=== PATIENT | female | born 1985 | race Caucasian/White ===

== ENCOUNTER 2016-08-25 14:31 | Emergency (ER) | payer OTHER, MEDICAID ==
[~2016-08-25] VITALS: Ht 175.3 cm; Wt 60.8 kg
[~2016-08-25 14:31] MED LIST: ABILIFY; PRENCAP15; ZOLOFT
[2016-08-25 15:58] LABS: Hematocrit 41.8 % (36.0-46.0); Hemoglobin 13.8 g/dL (12.2-16.2); Mean Corpuscular Hemoglobin 29.2 pg (28.0-32.0); Mean Corpuscular Hgb Conc. 33.1 g/dL (32.0-36.0); Mean Corpuscular Volume 88.2 fL (80.0-100.0); Mean Platelet Volume 8.4 fL (7.4-10.4); Platelet Count (auto) 230 10^3/uL (140-450); Red Cell Distribution Width 15.1 % (11.6-16.0); SUSPECT VIEW TRANSMISSION; White Blood Cell 17.7 10^3/uL (4.4-10.8)
[2016-08-25 16:02] LABS: Metamyelocytes % 0; Myelocytes % 0; Promyelocytes % 0; Reactive Lymphocytes 0
[2016-08-25 16:19] LABS: BUN/Creatinine Ratio 16.7; Calcium 8.8 mg/dL (8.5-10.1); Potassium 3.8 mmol/L (3.5-5.1)
[2016-08-25] MEDS ORDERED: SODIUM CHLORIDE 0.9% 1,000 ML IVB ONE (17:32)
[2016-08-25 17:42] VITALS: BP 112/62
[2016-08-25] MEDS ORDERED: ONDANSETRON HCL 4 MG/2 ML VIAL IV ONE (17:45)
[2016-08-25] MEDS ORDERED: HYDROmorphone HCL 2 MG/ML VL IV ONE (17:45)
[2016-08-25 17:54] LABS: Magnesium 2.3 mg/dL (1.6-2.6)
[2016-08-25 17:55] LABS: Urine Bilirubin Negative (Negative); Urine Blood Negative /uL (Negative); Urine Color Yellow (Yellow); Urine Glucose Normal (Normal); Urine Ketone Negative (Negative); Urine Mucus FEW (None Seen); Urine Nitrite Negative (Negative); Urine RBC 1 /hpf (0 - 4); Urine Squamous Epithelial Cell FEW /hpf (<5); Urine pH 6.5 (5.0-8.0)
[2016-08-25 18:41] LABS: Platelet Estimate Adequate
[2016-08-25 18:42] LABS: Anisocytosis Slight; Ovalocytes FEW
== END 2016-08-25 19:05 | disposition home or self-care (01) ==
LOC: ER 14:31
DX: N39.0 Urinary tract infection, site not specified (principal); F17.210 Nicotine dependence, cigarettes, uncomplicated; F15.10 Other stimulant abuse, uncomplicated
CPT/HCPCS: 36415; 74176; 80048; 80307; 81001; 83690; 83735; 84702; 85007; 85027; 94761; 96361; 96374; 96375; 99285; J1170; J2405; J7030

== ENCOUNTER 2016-11-19 19:22 | Emergency (ER) | payer OTHER, MEDICAID ==
[~2016-11-19] VITALS: Ht 175.3 cm; Wt 61.2 kg
[2016-11-19 19:58] VITALS: BP 103/71
[2016-11-19 20:44] LABS: Urine Bilirubin Negative (Negative); Urine Blood Negative /uL (Negative); Urine Ca Oxalate Crystal FEW (None Seen); Urine Color Yellow (Yellow); Urine Glucose Normal (Normal); Urine Ketone TRACE (Negative); Urine Mucus FEW (None Seen); Urine Nitrite Negative (Negative); Urine RBC 3 /hpf (0 - 4); Urine Squamous Epithelial Cell MANY /hpf (<5); Urine Urobilinogen Normal (Negative)
[2016-11-19 20:53] LABS: Basophils # (auto) 0 uL; Basophils % (auto) 0.4 % (0.0-2.0); CONDITION Y; Eosinophils # (auto) 0.1 uL; Eosinophils % (auto) 0.9 % (0.0-7.0); Hematocrit 38.9 % (36.0-46.0); Hemoglobin 12.9 g/dL (12.2-16.2); Lymphocytes # (auto) 2.9 uL; Lymphocytes % (auto) 32.8 % (10.0-50.0); Mean Corpuscular Hemoglobin 29.5 pg (28.0-32.0); Mean Corpuscular Hgb Conc. 33.2 g/dL (32.0-36.0); Mean Corpuscular Volume 88.9 fL (80.0-100.0); Mean Platelet Volume 8.8 fL (7.4-10.4); Monocytes # (auto) 0.4 uL; Monocytes % (auto) 4.9 % (0.0-12.0); Neutrophils # (auto) 5.5 uL; Platelet Count (auto) 192 10^3/uL (140-450); Red Cell Distribution Width 15.7 % (11.6-16.0)
[2016-11-19 21:17] LABS: Albumin 3.8 g/dL (3.4-5.0); BUN/Creatinine Ratio 16.2; Bilirubin, Total 0.1 mg/dL (0.2-1.0); Calcium 8.7 mg/dL (8.5-10.1); Potassium 3.9 mmol/L (3.5-5.1); Total Protein 7.5 g/dL (6.4-8.2)
== END 2016-11-19 23:31 | disposition left against medical advice (07) ==
LOC: ER 19:32
DX: R10.9 Unspecified abdominal pain (principal); Z53.21 Procedure and treatment not carried out due to patient leaving prior to being seen by health care provider
CPT/HCPCS: 36415; 80053; 80307; 81001; 81025; 82150; 83690; 85025

== ENCOUNTER 2018-10-07 16:05 | Inpatient (IN) | payer SELFPAY ==
[~2018-10-07] VITALS: Ht 175.3 cm; Wt 77.1 kg
[2018-10-07] MEDS: LACTATED RINGER'S 1,000 ML IV SCH (22:00)
[2018-10-07 22:21] LABS: Basophils # (auto) 0 uL; Basophils % (auto) 0.3 % (0.0-2.0); Eosinophils # (auto) 0 uL; Eosinophils % (auto) 0.2 % (0.0-7.0); Hematocrit 31.5 % (36.0-46.0); Hemoglobin 10.7 g/dL (12.2-16.2); Lymphocytes # (auto) 2.2 uL; Lymphocytes % (auto) 24.4 % (10.0-50.0); Mean Corpuscular Hemoglobin 28.8 pg (28.0-32.0); Mean Corpuscular Hgb Conc. 34.1 g/dL (32.0-36.0); Mean Corpuscular Volume 84.6 fL (80.0-100.0); Monocytes # (auto) 0.4 uL; Monocytes % (auto) 4.4 % (0.0-12.0); Neutrophils # (auto) 6.4 uL; Neutrophils % (auto) 70.7 % (37.0-80.0); Platelet Count (auto) 123 10^3/uL (140-450); Red Blood Cells 3.72 10^6/uL (4.0-5.20); Red Cell Distribution Width 14.8 % (11.8-14.3); White Blood Cell 9.1 10^3/uL (4.4-10.8)
[2018-10-07 22:34] LABS: INR 0.88 (0.9-1.15); Partial Thromboplastin Time 23.5 sec (23.64-32.05)
[2018-10-07 22:37] LABS: Albumin 2.5 g/dL (3.4-5.0); BUN/Creatinine Ratio 10.3; Calcium 8.4 mg/dL (8.5-10.1); Potassium 3.6 mmol/L (3.5-5.1)
[2018-10-07 22:39] LABS: Bilirubin, Total 0.3 mg/dL (0.2-1.0)
[2018-10-07 23:32] LABS: Urine Amorphous Crystal FEW /hpf (None Seen); Urine Bacteria MOD /hpf (None Seen); Urine Blood Negative /uL (Negative); Urine Hyaline Cast FEW /lpf (0 - 2); Urine Mucus FEW (None Seen); Urine Specific Gravity 1.022 (1.001-1.035); Urine WBC 3 /hpf (0 - 5)
[2018-10-07 23:40] LABS: Alcohol, Urine < 3.0 mg/dL (0-5); Barbiturate Scree,Urine NEGATIVE (NEGATIVE); Cannabinoid Screen, Urine POSITIVE (NEGATIVE); Opiate Scree,Urine NEGATIVE (NEGATIVE); Phencyclidine Screen, Urine NEGATIVE (NEGATIVE)
[2018-10-07 23:46] LABS: Amphetamine Screen, Urine NEGATIVE (NEGATIVE); Benzodiazephine Screen, Urine NEGATIVE (NEGATIVE); Cocaine Screen, Urine NEGATIVE (NEGATIVE)
[2018-10-08] MEDS: LACTATED RINGER'S 1,000 ML IV SCH ×2 (02:49→05:41)
[2018-10-08 08:54] LABS: Alcohol, Urine < 3.0 mg/dL (0-5); Amphetamine Screen, Urine NEGATIVE (NEGATIVE); Barbiturate Scree,Urine NEGATIVE (NEGATIVE); Benzodiazephine Screen, Urine NEGATIVE (NEGATIVE); Cocaine Screen, Urine NEGATIVE (NEGATIVE); Opiate Scree,Urine NEGATIVE (NEGATIVE); Phencyclidine Screen, Urine NEGATIVE (NEGATIVE)
[2018-10-08 08:55] LABS: Cannabinoid Screen, Urine POSITIVE (NEGATIVE)
[2018-10-09 06:06] LABS: RPR Non Reactive (Non Reactive); Rubella Antibodies, IgG 1.39 index (Immune >0.99)
== END 2018-10-08 08:03 | disposition home or self-care (01) | DRG 833 ==
LOC: LDRP 16:05 → OBSVTOIN 19:28 → LDRP 21:27
PROVIDERS: ADMIT Specialist; ATTEND Specialist
DX: O41.03X0 Oligohydramnios, third trimester, not applicable or unspecified (principal); Z3A.38 38 weeks gestation of pregnancy; O36.8130 Decreased fetal movements, third trimester, not applicable or unspecified; O34.211 Maternal care for low transverse scar from previous cesarean delivery; D64.9 Anemia, unspecified; O99.013 Anemia complicating pregnancy, third trimester
CPT/HCPCS: 36415; 51702; 59025; 76805; 76815; 76818; 80053; 80307; 81001; 81002; 84112; 84550; 85025; 85610; 85730; 86592; 86703; 86762; 86850; 86900; 86901; 87340; 96361; 96365; 96366; G0378

== ENCOUNTER 2018-10-12 12:15 | Inpatient (IN) | payer MEDICARE, MEDICAID ==
[2018-10-12] VITALS (7 sets, daily range): BP systolic 99–124; BP diastolic 50–77
[~2018-10-12] VITALS: Ht 175.3 cm; Wt 77.1 kg
[2018-10-12 13:08] LABS: Basophils # (auto) 0 uL; Basophils % (auto) 0.2 % (0.0-2.0); Eosinophils # (auto) 0 uL; Eosinophils % (auto) 0.4 % (0.0-7.0); Hematocrit 37.8 % (36.0-46.0); Hemoglobin 12.6 g/dL (12.2-16.2); Lymphocytes # (auto) 1.8 uL; Lymphocytes % (auto) 17.5 % (10.0-50.0); Mean Corpuscular Hemoglobin 28.1 pg (28.0-32.0); Mean Corpuscular Hgb Conc. 33.3 g/dL (32.0-36.0); Mean Corpuscular Volume 84.4 fL (80.0-100.0); Monocytes # (auto) 0.4 uL; Monocytes % (auto) 3.7 % (0.0-12.0); Neutrophils % (auto) 78.2 % (37.0-80.0); Nucleated Red Blood Cells % 0.2 %; Platelet Count (auto) 131 10^3/uL (140-450); Red Blood Cells 4.47 10^6/uL (4.0-5.20); Red Cell Distribution Width 15.1 % (11.8-14.3); White Blood Cell 10.2 10^3/uL (4.4-10.8)
[2018-10-12 13:25] LABS: Albumin 2.9 g/dL (3.4-5.0)
[2018-10-12 13:27] LABS: INR < 0.93 (0.9-1.15); Partial Thromboplastin Time 22.8 sec (23.64-32.05)
[2018-10-12 13:29] LABS: BUN/Creatinine Ratio 16.7; Bilirubin, Total 0.3 mg/dL (0.2-1.0); Total Protein 7.3 g/dL (6.4-8.2)
[2018-10-12] MEDS ORDERED: SUCCINYLCHOLINE CHLORIDE 20 MG/ML 10ML VIAL IV ONE (15:08)
[2018-10-12] MEDS ORDERED: fentaNYL CITRATE 100 MCG/2 ML VL ONE (15:17)
[2018-10-12] MEDS ORDERED: MORPHINE SULF(PF) 0.5MG/ML 10ML VIAL ONE (15:17)
[2018-10-12] MEDS ORDERED: ceFAZolin 1GM VL ONE (16:07)
[2018-10-12] MEDS ORDERED: OXYTOCIN 10 UNIT/ML 10ML VIAL ONE (16:07)
[2018-10-12] MEDS ORDERED: ONDANSETRON HCL 4 MG/2 ML VIAL IV PRN (16:30)
[2018-10-12] MEDS ORDERED: ceFAZolin 1GM/50ML 50 ML IV SCH (16:30)
[2018-10-12] MEDS ORDERED: diphenhdrAMINE HCL 50 MG/1 ML VL IV PRN (16:45)
[2018-10-12] MEDS ORDERED: NALOXONE HCL 0.4 MG/ML VIAL IV PRN (16:45)
--- NOTE | 2018-10-12 17:14 | NUR ---
Teaching: Reviewed and bottle feeding information in [facility] booklet with patient. Advised patient that since she has hx of positive THC, she should refrain from per Dr Robert recommendation; Pt states that she previously breastfed another of her children and would like to breastfeed this child. Discussed benefits of and risks associated with not . Discussed different positions, proper latch, feeding cues, and baby-led . Provided information of medication side effects related to . All questions and concerns addressed at this time. Patient verbalized understanding of information.
--- NOTE | 2018-10-12 17:50 | NUR ---
Post Op for LDRP: Received patient from PACU via bed to room 8B. Patient A/A/Ox4, abdominal binder and bilateral SCD's are in place, IV fluids placed on pump and infusing per order, incisional site dressing clean/dry/intact and Ascencio Catheter to gravity draining clear yellow urine. Incentive Spirometer at bedside and instruction on proper use with return demonstration done by patient.
[2018-10-12] MEDS: LACTATED RINGER'S 1,000 ML IV SCH ×2 (18:06→20:28)
[2018-10-12 18:20] LABS: Urine Bacteria NONE SEEN /hpf (None Seen); Urine Blood Negative /uL (Negative); Urine Specific Gravity 1.014 (1.001-1.035); Urine WBC 10 /hpf (0 - 5)
[2018-10-12 18:23] LABS: Alcohol, Urine < 3.0 mg/dL (0-5); Amphetamine Screen, Urine NEGATIVE (NEGATIVE); Barbiturate Scree,Urine NEGATIVE (NEGATIVE); Benzodiazephine Screen, Urine NEGATIVE (NEGATIVE); Cannabinoid Screen, Urine POSITIVE (NEGATIVE); Cocaine Screen, Urine NEGATIVE (NEGATIVE); Opiate Scree,Urine NEGATIVE (NEGATIVE); Phencyclidine Screen, Urine NEGATIVE (NEGATIVE)
--- NOTE | 2018-10-12 18:45 | NUR ---
Pt accidentally removed 20g peripheral IV to left wrist. Pressure dressing applied to site.
--- NOTE | 2018-10-12 18:50 | NUR ---
Dressing to lower abdominal incision clean, dry and intact. Addendum: 10/12/18 at 2342 by Little Del Castillo RN Amended: Links added.
--- NOTE | 2018-10-12 18:55 | NUR ---
Pt vomits large amount clear emesis onto blankets, into emesis bag. This RN remains at bedside with pt. Pt requests ice water after vomiting, educated pt she will have to remain NPO until nausea and vomiting subside. Pt verbalizes understanding and agrees to comply. SOiled gown and linens changed.
--- NOTE | 2018-10-12 19:00 | NUR ---
Pt informed of UDS results, educated regarding not recommended with use of THC. Pt verbalizes understanding, states she wishes to cntinue , but is willing to supplement with formula.
[2018-10-12 19:45] LABS: Basophils # (auto) 0.1 uL; Basophils % (auto) 0.5 % (0.0-2.0); Eosinophils # (auto) 0.1 uL; Eosinophils % (auto) 0.4 % (0.0-7.0); Hematocrit 34.7 % (36.0-46.0); Hemoglobin 11.4 g/dL (12.2-16.2); Mean Corpuscular Volume 84.8 fL (80.0-100.0); Monocytes # (auto) 0.6 uL; Neutrophils # (auto) 12.9 uL; Neutrophils % (auto) 82.1 % (37.0-80.0); Nucleated Red Blood Cells % 0.1 %; Platelet Count (auto) 117 10^3/uL (140-450); Red Blood Cells 4.09 10^6/uL (4.0-5.20); White Blood Cell 15.7 10^3/uL (4.4-10.8)
--- NOTE | 2018-10-12 19:45 | NUR ---
Pt states she is having a lot of pain at her incision. This RN at bedside to visually assess incision site. Small amount of sanguineous drainage noted on dressing, saturated gown and peripad noted with large baseball sized clot. Peripad and gown changed and saturated items weighed, 336 ml total. Pt is alert and oriented x 3, denies any dizziness or nausea at this time, vs stable. New Pitocin bag hung and administered per orders, infusing at 150 ml/hr, see eMAR. Will continue to monitor pt bleeding.
[2018-10-12] MEDS: ONDANSETRON HCL 4 MG/2 ML VIAL IV PRN (19:53)
[2018-10-12] MEDS: KETOROLAC TROMETH 30 MG/ML 1ML VIAL IV PRN (19:53)
[2018-10-12] MEDS: LACT. RINGERS/OXYTOCIN 20UNITS 1,000 ML IV SCH ×2 (20:23→23:09)
[2018-10-12] MEDS: MORPHINE SULFATE 4 MG/ML SYR/VIAL IV PRN (20:53)
--- NOTE | 2018-10-12 23:00 | NUR ---
Pt repeatedly removes BP cuff, pulse ox, educated pt regarding importance of continued vital sign monitoring post operatively. Pt verbalizes understanding and agrees to comply.
[2018-10-13] VITALS (8 sets, daily range): BP systolic 105–125; BP diastolic 62–87
[2018-10-13] MEDS: ceFAZolin 1GM/50ML 50 ML IV SCH ×3 (00:11→16:39)
[2018-10-13] MEDS: MORPHINE SULFATE 4 MG/ML SYR/VIAL IV PRN ×2 (01:49→05:44)
[2018-10-13] MEDS: ONDANSETRON HCL 4 MG/2 ML VIAL IV PRN ×2 (01:55→05:44)
[2018-10-13] MEDS: KETOROLAC TROMETH 30 MG/ML 1ML VIAL IV PRN (04:08)
--- NOTE | 2018-10-13 04:30 | NUR ---
Pericare provided to pt in bed. Clean gown, peripad and chucks applied. Pt tolerated well. No distress noted.
--- NOTE | 2018-10-13 04:50 | NUR ---
20g IV to right wrist observed partially dislodged, IV DC'd with clean technique and pressure dressing applied by Edil Purcell RN. 18g peripheral IV initiated to left hand by Edil Purcell RN, one attempt. Site flushes without resistance, transparent dressing applied and site secured.
[2018-10-13] MEDS: LACT. RINGERS/OXYTOCIN 20UNITS 1,000 ML IV SCH (05:49)
[2018-10-13] MEDS: LACTATED RINGER'S 1,000 ML IV SCH ×2 (05:52→12:28)
[2018-10-13 07:18] LABS: Basophils # (auto) 0 uL; Basophils % (auto) 0.3 % (0.0-2.0); Eosinophils # (auto) 0 uL; Eosinophils % (auto) 0.1 % (0.0-7.0); Hematocrit 27.6 % (36.0-46.0); Hemoglobin 9.4 g/dL (12.2-16.2); Lymphocytes # (auto) 1.3 uL; Lymphocytes % (auto) 13.3 % (10.0-50.0); Mean Corpuscular Hemoglobin 28.9 pg (28.0-32.0); Mean Corpuscular Hgb Conc. 34.2 g/dL (32.0-36.0); Mean Corpuscular Volume 84.4 fL (80.0-100.0); Monocytes # (auto) 0.4 uL; Monocytes % (auto) 4.3 % (0.0-12.0); Neutrophils # (auto) 8.1 uL; Platelet Count (auto) 102 10^3/uL (140-450); Red Blood Cells 3.26 10^6/uL (4.0-5.20); Red Cell Distribution Width 15.2 % (11.8-14.3); White Blood Cell 9.8 10^3/uL (4.4-10.8)
[2018-10-13] MEDS ORDERED: HYDROcodone-ACET 5/325MG TAB PO PRN (08:15)
--- NOTE | 2018-10-13 08:32 | NUR ---
dressing removed to lower abdomen valeria intact, site clean and dry, no drainage noted.
--- NOTE | 2018-10-13 08:33 | NUR ---
Emmanuel catheter dc'd Order to discontinue emmanuel catheter. Emmanuel dc'd with clean technique following deflation of balloon. Patient tolerated well with no complaints of pain. Continue care.
--- NOTE | 2018-10-13 09:03 | NUR ---
provider dr coleman at bedside
--- NOTE | 2018-10-13 09:22 | NUR ---
Ambulation: Patient OOB with standby assistance by RN. Patient ambulated to bathroom with steady gait. Patient was unable to void at this time. Pericare teaching provided with returned demonstration by patient. Clean gown provided and bed linen changed. Patient ambulated back to bed with steady gait and no distress noted.
[2018-10-13] MEDS: DOCUSATE SOD 100 MG CAP PO SCH ×2 (10:04→22:56)
--- NOTE | 2018-10-13 10:31 | NUR ---
social security benefits interviewer spoke with yuval call placed to cps if no call or visit by cps to call yuval at [phone]. continue care
[2018-10-13] MEDS: HYDROcodone-ACET 5/325MG TAB PO PRN ×3 (12:04→22:56)
--- NOTE | 2018-10-13 15:32 | NUR ---
social welfare administrator in to speak with patient from [facility]ann[facility]
--- NOTE | 2018-10-13 17:08 | NUR ---
TON [employer] INSPECTOR CONTACT INFO [facility] [phone]
--- NOTE | 2018-10-13 18:57 | NUR ---
physical assessment complete Incision open to air, all valeria intact, no redness or drainage noted, edges well approximated. Abdominal binder replaced. Patient encouraged to use IS and/or ambulate in the hallways. Patient refuses to do so at this time but verbalizes that she will at a later time.
[2018-10-13] MEDS: IBUPROFEN 800 MG TAB PO PRN (20:23)
--- NOTE | 2018-10-13 21:50 | NUR ---
Patient requesting to go outside to smoke Call placed to CNM, SBAR provided. Orders received to have patient sign consent form for smoking and either have patient escorted by security or remove IV with patient verbalizing that she will allow another IV to be started upon her return to the unit. Patient signed the concent form, refuses to wait 20 minutes for security to be available and demands for RN to remove IV at this time so she can go outside and smoke. IV removed using clean technique, catheter tip intact, pressure bandage applied to removal site. Patient ambulated off unit with steady gait, no S/S of distress noted.
--- NOTE | 2018-10-13 22:41 | NUR ---
Patient returns to unit. Displays no S/S of distress at this time.
--- NOTE | 2018-10-14 00:37 | NUR ---
IV started 18 gauge left hand by Edil Purcell RN. Patient displays no S/S of distress at this time.
[2018-10-14] MEDS: IBUPROFEN 800 MG TAB PO PRN ×2 (03:57→15:54)
[2018-10-14] MEDS: HYDROcodone-ACET 5/325MG TAB PO PRN ×5 (05:19→23:15)
[2018-10-14 05:37] LABS: RPR Non Reactive (Non Reactive)
[2018-10-14 07:15] VITALS: BP 102/55
[2018-10-14] MEDS: DOCUSATE SOD 100 MG CAP PO SCH ×2 (09:28→21:38)
[2018-10-14 11:15] VITALS: BP 114/76
[2018-10-14 14:50] VITALS: BP 115/70
--- NOTE | 2018-10-14 17:10 | NUR ---
Called Tiesha Lemons M.S. at [phone] and left voice message requesting she call unit before discharge (stated we are a 24 hour facility, call any time) to advise of CFS hold. I received information in shift report stating that due to patient history, Tiesha was expecting to place on CFS hold and would be faxing paperwork or returning to unit.
[2018-10-14 19:00] VITALS: BP 118/73
--- NOTE | 2018-10-14 20:17 | NUR ---
Called Placed to Tiesha Lemons M.S. at this time for any updates on this patient. Call went to voicemail and a message was left to call the unit for any updates.
[2018-10-14 23:00] VITALS: BP 125/69
--- NOTE | 2018-10-15 00:30 | NUR ---
C/S Staple Removal Note: Kp CNM at bedside and [place] removed using sterile technique. Lower abdominal incision approximated, no drainage/redness/inflammation visualized at time of removal. Steri-strips applied. Education provided on incisional care by Kp. Patient verbalized understanding and willingness to comply to instructions/teaching provided.
[2018-10-15] MEDS ORDERED: BISACODYL 10 MG RECT SUPP PR PRN (02:15)
[2018-10-15] MEDS: IBUPROFEN 800 MG TAB PO PRN (02:56)
[2018-10-15 03:00] VITALS: BP 116/63
[2018-10-15] MEDS ORDERED: BISACODYL 10 MG RECT SUPP PR ONE (04:30)
[2018-10-15] MEDS: HYDROcodone-ACET 5/325MG TAB PO PRN ×2 (04:35→10:59)
[2018-10-15 07:20] VITALS: BP 113/74
--- NOTE | 2018-10-15 07:40 | NUR ---
iv taken out . catheter noted to be intact.
--- NOTE | 2018-10-15 08:50 | NUR ---
Bri from [employer] in nursing station and states call ext [phone] for yohana and also Steve at ext [phone] they seen patient on . Called yohana and she states she will get back with me and that Steve is with her right now no need to call. Awaiting call back.
--- NOTE | 2018-10-15 09:20 | NUR ---
Called yohana at ext [phone] as per rosina from social service requested to speak with yohana if patient is clear from social service stand point . per yohana she will call me back. awaiting call back.
[2018-10-15] MEDS: DOCUSATE SOD 100 MG CAP PO SCH (10:00)
--- NOTE | 2018-10-15 10:10 | NUR ---
KARLA CALLED FROM SOCIAL SERVICE AND STATES THAT NIALL WILL CONTACT ME WITH CASE NUMBER. AWAITING CALL BACK
--- NOTE | 2018-10-15 10:45 | NUR ---
Received referral for Labor and delivery regarding a mom who was positive for THC and so was her . Pt is alert and oriented times 3. Pt recently moved down from [place] in [place]. She was thought to have no care but she had the name of a physician who she saw for care. The physician's name is Jose D. The pt5 had three other children. A 6 yr old,10year old 11year old. The 10 and 11 yr old have been adopted. Pt states she has been in contact with Aissatou Andre and Christina Richey. Called CPS and spoke with socially responsible investment adviser Denisse Carlin who took report on both mom and infant. [phone] report number. Cps will contact the socially responsible investment adviser Aissatou Brady the drug and alcohal counselor for additional informan
[2018-10-15 11:30] VITALS: BP 122/91
--- NOTE | 2018-10-15 12:02 | NUR ---
Pulled mom and baby's chart. They are still pt's here. The nurses indicated they have contacted Tiesha Lemons social welfare clerk at [phone] informed her that mom and baby were still here. This has been over the course of a week. Messages have been left but no contact has been made. CPS reports were sent to the hotline at [phone]. Left phone message with Tiesha.
--- NOTE | 2018-10-15 12:02 | NUR ---
Followup on status of CPS report with assigned transition social worker, Tiesha Lemons, with 2 phone calls this morning. Left voicemail but no return call. Contacted Child Protective Services hotline regarding evaluation by cps transition social worker and possible baby hold. Per Boni Sanchez, CPS hotline transition social worker, and informed that JG Motley made home visit on 10/13/18 and completed a walk through of home situation. Per her notes, pt's home is cleared with no hazards or risks, and that all provisions are met as well as present in the home. Also noted that she is aware that baby is discharging today and there is no CPS hold on the baby. Per CPS pt and baby are cleared for discharge today.
--- NOTE | 2018-10-15 12:10 | NUR ---
SPoke with Magalis by phone, she reports she spoke with CPS and mother is cleared to be discharged home with baby.
[2018-10-15 13:05] VITALS: BP 131/75
--- NOTE | 2018-10-15 13:17 | NUR ---
Discharge: Discharge instructions given as ordered. Pt encouraged to follow up with DIRECTOR [employer] SALES as instructed. All questions and concerns addressed. Patient verbalized understanding. Medication reconciliation completed and copy given to patient. Patient encouraged to prepare to depart unit.Discharge: Patient taken to vehicle via ambulation with all personal belongings, accompanied by staff and family member. No distress noted at time of departure, no adverse changes in status since initial assessment.
== END 2018-10-15 13:17 | disposition home or self-care (01) | DRG 788 ==
LOC: LDRP 12:15 → OBSVTOIN 12:15 → INTOOBSV 12:15 → LDRP 16:25
PROVIDERS: ADMIT Specialist; ATTEND Specialist
PROC: 10D00Z1 Extraction of Products of Conception, Low, Open Approach (ICD-10-PCS; principal; 2018-10-12 15:25)
DX: O34.211 Maternal care for low transverse scar from previous cesarean delivery (principal); Z37.0 Single live birth; Z3A.39 39 weeks gestation of pregnancy; F19.10 Other psychoactive substance abuse, uncomplicated
CPT/HCPCS: 36415; 51702; 59025; 80053; 80307; 81001; 84112; 85025; 85610; 85730; 86592; 86850; 86900; 86901; 94762; 96361; 96365; 96366; 96367; 96375; 96376; G0378; J0330; J0690; J1885; J2405; J2590